=== PATIENT | female | born 1965 ===

== ENCOUNTER 2016-07-05 18:09 | Emergency (ER) | payer OTHER ==
[2016-07-05 18:24] VITALS: BP 110/75
--- NOTE | 2016-07-05 19:27 | UC ---
Throat Pain/Nasal Alex HPI - HPI Summary HPI Summary: ST starting 3 nights ago, occ dry throat-clearing cough, feels tired and out of it. 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 Denies fever or trouble breathing. Pain in throat is worse than in usual colds. - History of Current Complaint Chief Complaint: UCGeneralIllness Stated Complaint: SORE THROAT Time Seen by Provider: 07/05/16 18:58 Hx Obtained From: Patient ?: No Onset/Duration: Sudden Onset Severity: Mild Cough: Nonproductive Associated Signs & Symptoms: Negative: Fever, Vomiting, Rash - Allergies/Home Medications Allergies/Adverse Reactions: Allergies Allergy/AdvReac Type Severity Reaction Status Date / Time No Known Allergies Allergy Verified 07/05/16 18:24 Home Medications: Home Medications NK [No Home Medications Reported] 07/05/16 [History Confirmed 07/05/16] PMH/Surg Hx/FS Hx/Imm Hx Previously Healthy: Yes - Surgical History Surgical History: Yes Surgery Procedure, Year, and Place: ACL right. partial hystertectomy. bunion/ reconstruction right foot - Family History Known Family History: Negative: Blood Disorder - Social History Occupation: Employed Full-time - teacher Lives: With Family Alcohol Use: Rare Substance Use Type: None Smoking Status (MU): Never Smoked Tobacco - Immunization History Most Recent Influenza Vaccination: none Review of Systems Constitutional: Fatigue Skin: Negative Eyes: Negative ENT: Sore Throat Respiratory: Cough Cardiovascular: Negative Gastrointestinal: Negative Genitourinary: Negative Motor: Negative Neurovascular: Negative Musculoskeletal: Negative Neurological: Negative Psychological: Negative All Other Systems Reviewed And Are Negative: Yes Physical Exam Triage Information Reviewed: Yes Appearance: Well-Appearing, No Pain Distress, Well-Nourished Vital Signs: Initial Vital Signs Temp 97.8 F 07/05/16 18:16 Pulse 92 07/05/16 18:16 Resp 16 07/05/16 18:16 BP 110/75 07/05/16 18:16 Pulse Ox 99 07/05/16 18:16 Vital Signs Reviewed: Yes Eye Exam: Normal Eyes: Positive: Conjunctiva Clear ENT Exam: Normal ENT: Positive: Normal ENT inspection, Hearing grossly normal, Pharynx normal, TMs normal. Negative: Tonsillar swelling, Tonsillar exudate Dental Exam: Normal Neck exam: Normal Neck: Positive: Supple, Nontender, No Lymphadenopathy Respiratory Exam: Normal Respiratory: Positive: Chest non-tender, Lungs clear, Normal breath sounds, No respiratory distress, No accessory muscle use Cardiovascular Exam: Normal Cardiovascular: Positive: RRR, No Murmur Musculoskeletal Exam: Normal Neurological Exam: Normal Neurological: Positive: Alert Psychological Exam: Normal Throat Pain/Nasal Course/Dx - Differential Dx/Diagnosis Provider Diagnoses: pharyngitis, likely viral Discharge - Discharge Plan Condition: Stable Disposition: HOME Patient Education Materials: Pharyngitis (ED) Referrals: Adelina Meredith MD [Medical Doctor] - Additional Instructions: Rapid strep negative. I expect your sore throat to start improving in the next 3 -4 days. If you start having high fevers, trouble with breathing/swallowing, or any severe symptoms, please return here or see your primary care provider.
--- NOTE | 2016-07-06 17:49 | UC ---
Progress - Progress Note Progress Note: PLEASE LET THE PT. KNOW THAT SHE HAD NEGATIVE STEP TEST MOST LIKELY A VIRAL PHARYNGITIS AND NO NEED FOR ANY ANTIBIOTICS TREATMENT AT THIS TIME PLEASE CONT. WITH CONSERVATIVE TREATMENT, REST, FLUID, IBUPROFEN OR TYLENOL NEEDED FOR PAIN FOLLOW UP WITH HER PCP IF NEEDED
== END 2016-07-05 19:47 | disposition home or self-care (01) ==
LOC: UCCORT 18:09
DX: J02.9 Acute pharyngitis, unspecified (principal)
CPT/HCPCS: 87651; 99211; G0463